=== PATIENT | male | born 1990 | race Hispanic/Latino ===

== ENCOUNTER 2016-11-20 20:58 | Emergency (ER) | payer OTHER ==
--- NOTE | 2016-11-20 23:11 | Emergency Department Report ---
ED Eye Problem HPI - General Chief complaint: Eye Problems Stated complaint: FB EYE Time Seen by Provider: 11/20/16 23:08 Source: patient Mode of arrival: Ambulatory Limitations: No Limitations - History of Present Illness Initial comments: Patient here reports that he was cutting plastic in pieces at around 4 PM today. He said he was wearing his goggles and when he removed glasses he felt something fell in his left eye. He said he flushed his eyes out. He denies any visual changes. Reports he feels like something is scratching his eyes and he is having pain 5 out of 10. No [id number] medication taken. chief complaint: eye pain, eye redness, eye injury, foreign body -: This evening Onset Description: sudden Location: left eye Place: work If Injury: occurred while hammering/ Eye Symptoms: redness, pain, foreign body sensation Severity: moderate Severity scale (0 -10): 5 If Pain, Quality: burning Consistency: constant Associated Symptoms: none Treatments Prior to Arrival: irrigated eye - Related Data Patient Tetanus UTD: Yes Previous Rx's Medication Instructions Recorded Last Taken Type Acetaminophen/Codeine [Tylenol #3] 1 tab PO TID PRN #12 tab 11/21/16 Unknown Rx Gentamicin 0.3% Ophth Soln 2 drops OP Q4H #1 bottle 11/21/16 Unknown Rx Allergies Allergy/AdvReac Type Severity Reaction Status Date / Time No Known Allergies Allergy Verified 11/20/16 21:28 ED Review of Systems ROS: Stated complaint: FB EYE Other details as noted in HPI Comment: All other systems reviewed and negative Constitutional: denies: chills, fever Eyes: eye pain. denies: eye discharge, vision change ENT: denies: ear pain, throat pain Respiratory: no symptoms reported Cardiovascular: denies: chest pain, palpitations, edema, syncope Gastrointestinal: denies: abdominal pain, nausea, vomiting, diarrhea, constipation Musculoskeletal: denies: back pain Skin: denies: rash Neurological: denies: headache, weakness, numbness, paresthesias, confusion, abnormal gait, vertigo ED Past Medical Hx - Past Medical History Previous Medical History?: No - Surgical History Past Surgical History?: No - Family History Family history: no significant - Social History Smoking Status: Current Every Day Smoker Substance Use Type: None - Medications Home Medications: Home Medications Medication Instructions Recorded Confirmed Last Taken Type Acetaminophen/Codeine [Tylenol #3] 1 tab PO TID PRN #12 tab 11/21/16 Unknown Rx Gentamicin 0.3% Ophth Soln 2 drops OP Q4H #1 bottle 11/21/16 Unknown Rx ED Physical Exam - General Limitations: No Limitations General appearance: alert, in no apparent distress - Head Head exam: Present: atraumatic, normocephalic, normal inspection - Eye Eye exam: Present: normal appearance, PERRL, EOMI. Absent: scleral icterus, nystagmus, periorbital swelling, periorbital tenderness Pupils: Present: normal accommodation - Expanded Eye Exam Expanded Eyelids: Normal Inspection: Right (both eyelids) Pupils: Regular, Round: Bilateral, Reactive: Bilateral Sclera/Conjunctival: Injection: Left (erythema) Posterior chamber: Normal Inspection: Bilateral Visual acuity (R) = 20/: 20 (eyes 20/20) Visual acuity (L) = 20/: 40 - ENT ENT exam: Present: normal exam, normal orophraynx, mucous membranes moist, TM's normal bilaterally, normal external ear exam - Neck Neck exam: Present: normal inspection, full ROM. Absent: tenderness, meningismus, lymphadenopathy - Respiratory Respiratory exam: Present: normal lung sounds bilaterally. Absent: respiratory distress - Cardiovascular Cardiovascular Exam: Present: regular rate, normal rhythm, normal heart sounds - GI/Abdominal GI/Abdominal exam: Present: soft, normal bowel sounds. Absent: distended, tenderness, guarding, rebound, rigid - Extremities Exam Extremities exam: Present: normal inspection, full ROM, normal capillary refill. Absent: tenderness, pedal edema, joint swelling, calf tenderness - Back Exam Back exam: Present: normal inspection, full ROM - Neurological Exam Neurological exam: Present: alert, oriented X3, normal gait, reflexes normal. Absent: motor sensory deficit - Psychiatric Psychiatric exam: Present: normal affect, normal mood - Skin Skin exam: Present: warm, dry, intact, normal color. Absent: rash ED Course Vital Signs 11/20/16 21:28 Temperature 98.6 F Pulse Rate 84 Respiratory 16 Rate Blood Pressure 134/80 O2 Sat by Pulse 100 Oximetry - Reevaluation(s) Reevaluation #1: 11/21/16 00:51 Patient stable throughout ED course - Procedure Description Procedures done: Eye procedure: Left eye examine under Nguyen lamp. 2 drops of tetracaine eyedrops followed by fluorescein staining. Patient with small corneal abrasion to left eye. Tetanus shot is up-to-date. ED Medical Decision Making - Medical Decision Making ED course:I discussed with patient that he has left corneal abrasion and will need to follow-up with eye doctor on Thursday. Understanding of discharge instructions and treatment plan. Discharged home with prescription for gentamicin ophthalmic solution and Tylenol 3 Critical care attestation.: If time is entered above; I have spent that time in minutes in the direct care of this critically ill patient, excluding procedure time. ED Disposition Clinical Impression: Corneal abrasion, left Qualifiers: Encounter type: initial encounter Qualified Code(s): S05.02XA - Injury of conjunctiva and corneal abrasion without foreign body, left eye, initial encounter Left eye injury Qualifiers: Encounter type: initial encounter Qualified Code(s): S05.92XA - Unspecified injury of left eye and orbit, initial encounter Disposition: DISCHARGED TO HOME OR SELFCARE Is pt being admited?: No Does the pt Need Aspirin: No Condition: Stable Instructions: Corneal Abrasion (ED) Prescriptions: Acetaminophen/Codeine [Tylenol #3] 1 tab PO TID PRN #12 tab PRN Reason: Pain Gentamicin 0.3% Ophth Soln 2 drops OP Q4H #1 bottle Referrals: PRIMARY CAREMD [Primary Care Provider] - 11/24/16 SAVANAH REINOSO MD [Staff Physician] - 11/24/16 Forms: Work/School Release Form(ED)
[2016-11-20] MEDS ORDERED: BSS 1 DROPS, TETRACAINE 0.5% 1 DROPS, FUL-GLO 1 MG TP ONE (23:13)
[2016-11-20] MEDS ORDERED: TETRACAINE 0.5% OU ONE (23:16)
[2016-11-20] MEDS ORDERED: FUL-GLO OP ONE (23:16)
[2016-11-21 01:08] VITALS: BP 130/78
== END 2016-11-21 01:06 | disposition home or self-care (01) ==
LOC: ED 20:58
DX: S05.02XA Injury of conjunctiva and corneal abrasion without foreign body, left eye, initial encounter (principal); S05.92XA Unspecified injury of left eye and orbit, initial encounter; F17.200 Nicotine dependence, unspecified, uncomplicated; X58.XXXA Exposure to other specified factors, initial encounter; Y93.89 Activity, other specified; Y99.9 Unspecified external cause status; Y92.89 Other specified places as the place of occurrence of the external cause
CPT/HCPCS: 99283